=== PATIENT | male | born 1965 | race Caucasian/White ===

== ENCOUNTER 2018-02-06 04:17 | Observation (INO) ==
[2018-02-06] MEDS ORDERED: Morphine Inj 4 MG/ML Vial IV.PUSH ONE (05:05)
--- NOTE | 2018-02-06 05:11 | ED ---
HPI General Chief Complaint: Abdominal Pain Stated Complaint: Abd Pain/EVAC Time Seen by Provider: 02/06/18 05:00 History of Present Illness HPI narrative: 52-year-old male presents to the emergency department by private transportation for evaluation of abdominal pain with nausea and vomiting. Patient underwent herniorrhaphy repair 02/06/[address] Santos was identified to have incarcerated omentum but no evidence of bowel strangulation or incarceration. Patient states that as he awakened in recovery was in quite a bit of pain but was encouraged by staff that he could go home and then he should return if he had increasing pain upon patient's arrival home he had vomiting with increasing pain and finally called the surgeon and discussed his situation with the on-call surgeon who encouraged him return to the emergency department for pain management and possible admission. Patient's had no fever chills; no hemoptysis; no hematemesis or coffee-ground emesis; no chest pain or shortness of breath or pleuritic chest pain; patient's had good urine output; patient does not report constipation or decreased flatus. Patient states did take Zofran but vomited the Zofran and able to take pain medication. Presents to the emergency department this time for abdominal pain. Patient is wearing an abdominal binder and does not report any bleeding through his dressings or binder. Related Data Home Medications Medication Instructions Recorded Confirmed melatonin 10 mg PO HS PRN 02/05/18 02/06/18 ranitidine HCl [Zantac] 150 mg PO BID 02/05/18 02/06/18 Allergies Allergy/AdvReac Type Severity Reaction Status Date / Time No Known Allergies Allergy Verified 02/05/18 12:35 Review of Systems Except as stated in HPI: all other systems reviewed are negative [facility] Medical History Medical History Asthma (Acute) CLL (chronic lymphocytic leukemia) (Acute) Colostomy hernia (Acute) Depression (Acute) GERD (gastroesophageal reflux disease) (Acute) Incisional hernia (Acute) Pain (Acute) Wears glasses (Acute) Surgical History Surgical History History of colon resection (Acute) History of colostomy reversal (Acute) History of lithotripsy (Acute) Hx of appendectomy (Acute) Hx of cystoscopy (Acute) Social History Social History Substance History: No History of Abuse Second Hand Smoke Exposure: No Smoking Status: Former smoker How Often Do You Have a Drink Containing Alcohol: 2 to 3 times a week Recent Travel in [facility] within the Last 8 Weeks: No Recent Out of Country Travel within the Last 8 Weeks: No Immunization History Tetanus Immunization: Unsure Hx Influenza Vaccine This Season: No Exam Narrative Exam Narrative: GENERAL: Well-nourished, well-developed patient. Well- developed well-nourished male no acute distress no respiratory distress SKIN: Focused skin assessment warm/dry. HEAD: Normocephalic. EYES: No scleral icterus. No injection or drainage. NECK: Supple, trachea midline. No JVD or lymphadenopathy. CARDIOVASCULAR: Regular rate and rhythm without murmurs, gallops, or rubs. RESPIRATORY: Breath sounds equal bilaterally. No accessory muscle use. GASTROINTESTINAL: Abdomen soft, non-tender, nondistended. Abdominal binder in place this is loosened and surgical sites are evaluated and dressings are dry laparoscopic incision sites are dry no induration no erythema abdominal binder replaced and secured. MUSCULOSKELETAL: No cyanosis, or edema. BACK: Nontender without obvious deformity. No CVA tenderness. Course Initial Documented Vital Signs Temperature 98.7 F 02/06/18 04:48 Pulse Rate 104 H 02/06/18 04:48 Respiratory Rate 20 02/06/18 04:48 Blood Pressure 169/92 H 02/06/18 04:48 Pulse Oximetry 97 02/06/18 04:48 Last Documented Vital Signs Temperature 98.7 F 02/06/18 04:48 Pulse Rate 104 H 02/06/18 04:48 Respiratory Rate 20 02/06/18 04:48 Blood Pressure 169/92 H 02/06/18 04:48 Pulse Oximetry 97 02/06/18 05:18 Medical Decision Making MDM Narrative Medical decision making narrative: Postoperative pain with nausea and vomiting; IV access obtained specimens collections of resulting upright chest x-ray ordered patient ordered morphine sulfate 4 mg IV and Reglan 10 mg IV with maintenance IV fluids at 1 25 cc/h At 7 AM patient feels improved after IV fluids Reglan and morphine sulfate; abdominal upright film shows no free air and no obstruction; white count is 35, 000 but history of CLL with typical white count 30-32,000 is essentially unchanged as patient is probably mildly dehydrated due to poor oral hydration nausea and postoperatively; other labs are grossly within normal limits At 7:10 AM patient's case discussed with his surgeon Dr. Santos who states he will be in to see the patient in the emergency department determine whether or not to place the patient in observation or allow the patient to go home. Dr. Santos at bedside with patient request patient be placed on his service as an observation patient. Differential Diagnosis Differential Diagnosis: Postoperative pain, post emesis incisional injury, dehydration, electrolyte disturbance Medical Records Medical records reviewed: Yes I reviewed the patient's medical records. Lab Data Result diagrams: 02/06/18 05:15 02/06/18 05:15 Lab Results 02/06/18 02/06/18 Range/Units 05:15 05:15 WBC 35.6 H (4.0-11.0) th/mm3 RBC 4.32 L (4.50-5.90) mil/mm3 Hgb 13.5 (13.0-17.0) gm/dL Hct 40.2 (39.0-51.0) % MCV 93.1 (80.0-100.0) fL MCH 31.2 (27.0-34.0) pg MCHC 33.5 (32.0-36.0) % RDW 13.4 (11.6-17.2) % Plt Count 353 (150-450) th/mm3 MPV 7.5 (7.0-11.0) fL Prelim Diff (Auto) Slide review pending Neut % (Auto) 32.7 (16.0-70.0) % Lymph % (Auto) 64.5 H (9.0-44.0) % Citrus % (Auto) 2.6 (0.0-8.0) % Eos % (Auto) 0.0 (0.0-4.0) % Baso % (Auto) 0.2 (0.0-2.0) % Neut # (Auto) 11.6 H (1.8-7.7) th/mm3 Lymph # (Auto) 23.0 H (1.0-4.8) th/mm3 Citrus # (Auto) 0.9 (0.0-0.9) th/mm3 Eos # (Auto) 0.0 (0.0-0.4) th/mm3 Baso # (Auto) 0.1 (0.0-0.2) th/mm3 WBC Differential Manual diff final Seg Neuts % (Manual) 13 L (16-70) % Lymphocytes % (Manual) 86 H (9-44) % Monocytes % (Manual) 1 (0-8) % Abs Neuts (Manual) 4.6 (1.8-7.7) th/mm3 Differential Comment . Smudge Cells Present H (None) Platelet Estimate Normal (Normal) Platelet Morphology Normal (Normal) Sodium 139 (136-145) meq/L Potassium 4.6 (3.5-5.1) meq/L Chloride 104 (98-107) meq/L Carbon Dioxide 25.7 (21.0-32.0) meq/L Anion Gap 9 (5-15) meq/L BUN 14 (7-18) mg/dL Creatinine 1.13 (0.60-1.30) mg/dL Estimated GFR 68 L (>89) mL/min Random Glucose 144 H (74-106) mg/dL Calcium 8.5 (8.5-10.1) mg/dL Total Bilirubin 0.4 (0.2-1.0) mg/dL AST 23 (15-37) U/L ALT 36 (12-78) U/L Alkaline Phosphatase 47 (45-117) U/L Total Protein 6.9 (6.4-8.2) g/dL Albumin 3.8 (3.4-5.0) g/dL Lipase 92 (73-393) U/L Imaging Data Radiologist's impression: Abdomen X-Ray 02/06/18 05:05 CONCLUSION: Radiographically benign-appearing abdomen without obstruction or pneumoperitoneum. Discharge Plan Discharge Disposition Patient Disposition: 30 Still Patient Discharge Condition Condition: Stable Discharge Details Diagnosis: Postoperative abdominal pain Physicians Team ED Provider: Karishma Hare Primary Care Provider: Primary Care CalliiNita Rxs /Orders / Referrals /Forms Prescriptions: No Action ranitidine HCl [Zantac] 150 mg Tablet 150 mg PO BID RF: 0 melatonin 10 mg Capsule 10 mg PO HS PRN (Reason: Insomnia) RF: 0 Status ED Status: With Doctor
[2018-02-06] MEDS ORDERED: Sod Chloride 0.9% Inj 1,000 ML IV.CONT SCH (05:15)
[2018-02-06 05:28] LABS: Baso # (Auto) 0.1 th/mm3 (0.0-0.2); Baso % (Auto) 0.2 % (0.0-2.0); Hematocrit 40.2 % (39.0-51.0); Hemoglobin 13.5 gm/dL (13.0-17.0); Lymph % (Auto) 64.5 % (9.0-44.0); Mean Corpuscular HGB Conc 33.5 % (32.0-36.0); Mean Corpuscular Hemoglobin 31.2 pg (27.0-34.0); Mean Corpuscular Volume 93.1 fL (80.0-100.0); Mean Platelet Volume 7.5 fL (7.0-11.0); Mono # (Auto) 0.9 th/mm3 (0.0-0.9); Mono % (Auto) 2.6 % (0.0-8.0); Neut # (Auto) 11.6 th/mm3 (1.8-7.7); Neut % (Auto) 32.7 % (16.0-70.0); Platelet Count 353 th/mm3 (150-450); Red Blood Count 4.32 mil/mm3 (4.50-5.90); Red Cell Distribution Width 13.4 % (11.6-17.2); White Blood Count 35.6 th/mm3 (4.0-11.0)
[2018-02-06 05:35] LABS: Alanine Aminotransferase 36 U/L (12-78); Albumin 3.8 g/dL (3.4-5.0); Anion Gap 9 meq/L (5-15); Aspartate Aminotransferase 23 U/L (15-37); Blood Urea Nitrogen 14 mg/dL (7-18); Calcium 8.5 mg/dL (8.5-10.1); Carbon Dioxide 25.7 meq/L (21.0-32.0); Chloride 104 meq/L (98-107); Glomerular Filtration Rate 68 mL/min (>89); Glucose,Random 144 mg/dL (74-106); Lipase 92 U/L (73-393); Potassium 4.6 meq/L (3.5-5.1); Sodium 139 meq/L (136-145)
[2018-02-06 05:38] LABS: Alkaline Phosphatase 47 U/L (45-117); Total Protein 6.9 g/dL (6.4-8.2)
--- NOTE | 2018-02-06 06:02 | XR ---
EXAM DATE: 02/06/2018 5:57 AM EDT AGE/SEX: 52 years / Male INDICATIONS: Abdominal pain. CLINICAL DATA: This is the patient's initial encounter. Patient reports that signs and symptoms have been present for 1 day and indicates a pain score of 6/10. MEDICAL/SURGICAL HISTORY: None. . Double hernia repair. Colon resection. COMPARISON: No prior exams available for comparison. FINDINGS: Paucity of bowel gas in a nonobstructive pattern. No pneumoperitoneum. Small springlike metallic den sities in the right para midline lower abdomen probably represents a prior hernia mesh repair. CONCLUSION: Radiographically benign-appearing abdomen without obstruction or pneumoperitoneum. Electronically signed by: Nic Valera MD 02/06/2018 6:01 AM EDT
[2018-02-06] MEDS ORDERED: Sod Chloride 0.9% Inj 1,000 ML IV.SIG ONE (06:57)
[2018-02-06 07:13] LABS: Lymphocytes 86 % (9-44); Monocytes 1 % (0-8)
[2018-02-06 07:14] LABS: Platelet Estimate Normal (Normal); Platelet Morphology Normal (Normal); Smudge Cells Present
[2018-02-06] MEDS ORDERED: Morphine Inj 4 MG/ML Vial IV.PUSH PRN (07:39)
[2018-02-06] MEDS ORDERED: Promethazine 25 MG Supp RECTAL PRN (07:39)
[2018-02-06] MEDS ORDERED: Bisacodyl 10 MG Supp RECTAL PRN (07:39)
[2018-02-06] MEDS ORDERED: Post-op Orders (for Pharmacy) OTHER ONE (07:39)
[2018-02-06] MEDS: Sod Chloride 0.9% Inj 1,000 ML IV.CONT SCH (10:15)
[2018-02-06] MEDS: ceFAZolin 2 GM Premix Inj 2 GM/50 ML PIGGYBACK IV.SIG SCH ×2 (10:16→16:41)
[2018-02-06] MEDS: Senna/Docusate Sodium 8.6/50 MG Tablet PO SCH ×2 (14:13→20:15)
[2018-02-06 14:58] LABS: Bilirubin,Urine Negative (Negative); Clarity,Urine Clear (Clear); Color,Urine Yellow (Yellw/Straw); Glucose,Urine (UA) 50 mg/dL (Negative); Leukocyte Esterase,Urine Negative (Negative); Nitrite,Urine Negative (Negative)
--- NOTE | 2018-02-06 17:41 | MH ---
cc: Federico Santos MD DATE OF ADMISSION: 02/06/2018 CHIEF COMPLAINT: Abdominal pain, history of hernia repair. HISTORY OF PRESENT ILLNESS: The patient is a 52-year-old male who presents with a history of a hernia for which he underwent hernia repair x2 on 02/06/2018. The patient had uneventful surgery, however, was noted to be in significant pain and had evidence of nausea and vomiting. He denied fevers, chills. He had some improvement with Zofran and came to the emergency department for evaluation. PAST MEDICAL HISTORY: Diverticulitis, ARSENIO, reflux, hernia. PAST SURGICAL HISTORY: Hernia repair x2, appendectomy, colostomy, colostomy reversal. SOCIAL HISTORY: Denies smoking, ETOH or IVDA. MEDICATIONS: See EMR. FAMILY HISTORY: Denies diabetes or hypertension. REVIEW OF SYSTEMS: A 12-point review of systems was done, otherwise negative except for as above. PHYSICAL EXAMINATION: GENERAL: Patient in no acute distress. VITAL SIGNS: Temperature 98.7, pulse 104, respiratory rate 20, blood pressure 169/92, saturation 97%. HEENT: Pupils equal, round, reactive. NECK: Supple. Trachea midline. LUNGS: Clear to auscultation, bilateral expansion. HEART: S1, S2. Regular rate and rhythm. ABDOMEN: Incisional tenderness, nondistended, mild tenderness to palpation. No peritoneal signs. EXTREMITIES: Warm and well perfused. NEUROLOGIC: GCS of 15, 5/5 motor in all extremities. BACK: Normal curvature. MUSCULOSKELETAL: No edema. LABORATORY AND DIAGNOSTIC DATA: WBC 35.6, hemoglobin 13.5, hematocrit 40.2, platelets 353. Sodium 139, potassium 4.6, chloride 104, bicarbonate 25, BUN 14, creatinine 1.1, glucose 144. ASSESSMENT: The patient is a 52-year-old male status post hernia repair, painful episode, nausea and vomiting. PLAN: After a full workup, the patient with above-named issues. At this point, the patient will be observation, IV fluids, pain control, nausea and vomiting control. The patient will be a 23-hour observation. Discussed with the patient and nursing staff. Repair looks completely intact, and patient with leukocytosis, likely as a result of CLL. Previous history of WBC around 30 in the past. MD JOSE DAVID Paez/emmanuel/ll , 03:17 PM , 03:30 PM
[2018-02-07] MEDS: Sod Chloride 0.9% Inj 1,000 ML IV.CONT SCH ×2 (00:01→03:00)
[2018-02-07] MEDS: ceFAZolin 2 GM Premix Inj 2 GM/50 ML PIGGYBACK IV.SIG SCH (00:05)
[2018-02-07] MEDS: Senna/Docusate Sodium 8.6/50 MG Tablet PO SCH (08:13)
--- NOTE | 2018-02-07 11:21 | P.PNGS ---
Subjective Patient reports: no new complaints, feels better (minimal nausea, ) Physical Exam Vital signs: Vital Signs 02/06/18 14:33 02/06/18 19:35 02/06/18 23:54 Temperature 98.5 F 98.6 F 98.1 F Pulse Rate 101 H 104 H 89 Respiratory Rate 18 18 Blood Pressure 133/70 135/70 121/60 Pulse Oximetry 99 98 96 02/07/18 04:00 02/07/18 07:53 02/07/18 08:15 Temperature 98.0 F 97.4 F L Pulse Rate 91 H 86 Respiratory Rate 18 18 18 Blood Pressure 134/68 132/69 Pulse Oximetry 96 98 Intake & Output 02/06/18 02/07/18 02/07/18 18:59 06:59 18:59 Intake Total 150 / 150 1300 / 1300 Balance 150 / 150 1300 / 1300 Intake: IV 150 / 150 1300 / 1300 NS Inj 1,000 ML @ 100 mls/hr IV 1000 / 1000 .CONT .Q10H ARNOLDO Rx#:[id number] Ancef 2 GM Premix Inj 2 gm In 50 / 50 100 / 100 50 ml @ 100 mls/hr IV.SIG Q8H ARNOLDO Rx#:[id number] Flagyl 500 MG Inj 100 ML @ 100 100 / 100 200 / 200 mls/hr IV.SIG Q8H ARNOLDO Rx#: [id number] - Routine Respiratory Exam Present: CTA bilaterally - Routine Cardiovascular Exam Present: RRR - Routine Abdominal Exam Present: soft (incisional tenderness, c/d/i, no infection) Assessment and Plan - Plan s/p hernia repair pain much improved Plan reg diet oob pain control PO d/c home today
[2018-02-07 12:37] VITALS: BP 132/61; PULSE 97; RESP 16; TEMP 97.9; O2SAT 97
== END 2018-02-07 13:44 | disposition home or self-care (01) ==
LOC: NEDA 04:17 → NEPFCDU 04:17 → NEPC 04:17 → NEPFCDU 14:16
PROVIDERS: ADMIT Surgery; ATTEND Surgery